=== PATIENT | male | born 1960 | race African-American/Black ===

== ENCOUNTER 2016-06-25 11:20 | Inpatient (IN) | payer OTHER ==
[2016-06-25] MEDS ORDERED: methylPREDNISolone NA SUCC 125 MG/2 ML VIAL IVPB ONE (12:14)
[2016-06-25] MEDS ORDERED: ALBUTEROL SO4 2.5/IPRATROPIUM 0.5 INH SOL 3 ML VIAL.NEB. NEB ONE ×2 (12:14→12:24)
[2016-06-25] MEDS ORDERED: OXYCODONE/APAP 5/325MG COMBO TABLET PO ONE (12:14)
--- NOTE | 2016-06-25 12:21 | PDOC ---
History of Present Illness - General History Source: Patient Exam Limitations: No Limitations - History of Present Illness Initial Comments: 06/25/16 13:54 The patient is a 55 year old male with a significant past medical history of hypertension, hyperlipidemia, pulmonary hypertension, chronic hypoxic hypercapnic respiratory failure on 3-4L of home O2, CHF, COPD, and DVT (on eliquis), who presents to the ER with shortness of breath, chest congestion and coughing for 2-3 days and s/p fall 2 days ago. Patient notes that over the past couple of days his coughing has worsened and he is experiencing dyspnea on exertion. He notes that he had to increase his O2 to 8-9L at home and has increased nebulizer use from 2 times a day to 4 times. Patient notes that he is on 10 mg of prednisone 2x daily. Patient notes that he rolled off the bed 2 days ago and landed on his left side on couple of toys. Patient reports pain to the left side chest of his ribs and pain upon inhalation and exhalation. He states that he saw Dr. Johnson 2 weeks ago. He denies fever, chills, nausea, vomiting, diarrhea, constipation or abdominal pain. PCP - Does not have one at the moment but notes that Dr. Johnson will be his PMD until he finds one. <Dee Whitney - Last Filed: 06/25/16 16:42> <Gilberto Perry - Last Filed: 06/25/16 17:28> - General Chief Complaint: Shortness of Breath Stated Complaint: SOB Time Seen by Provider: 06/25/16 11:51 Past History <Dee Whitney - Last Filed: 06/25/16 16:42> - Past Medical History Anemia: No Asthma: No Cancer: No Cardiac Disorders: Yes (CHF) CVA: No COPD: Yes (emphysema) CHF: Yes Dementia: No Diabetes: No (DENIES) GI Disorders: No Disorders: No HTN: Yes Hypercholesterolemia: Yes Liver Disease: No Seizures: No Thyroid Disease: No - Surgical History Abdominal Surgery: Yes (POLYPS FROM STOMACH LINING.) Appendectomy: No Cardiac Surgery: No Cholecystectomy: No Lung Surgery: No Neurologic Surgery: No Orthopedic Surgery: Yes (knee arthroscopy) - Immunization History Immunization Up to Date: Yes - Psycho/Social/Smoking Cessation Hx Anxiety: No Suicidal Ideation: No Smoking Status: Yes Smoking History: Former smoker Have you smoked in the past 12 months: No Number of Cigarettes Smoked Daily: 10 If you are a former smoker, when did you quit?: 2004 Information on smoking cessation initiated: No 'Breaking Loose' booklet given: 11/26/15 Hx Alcohol Use: No Drug/Substance Use Hx: No Substance Use Type: None Hx Substance Use Treatment: Yes ([facility]) <Gilberto Perry - Last Filed: 06/25/16 17:28> - Past Medical History Allergies/Adverse Reactions: Allergies Allergy/AdvReac Type Severity Reaction Status Date / Time No Known Allergies Allergy Verified 06/25/16 11:26 Home Medications: Ambulatory Orders Apixaban [Eliquis] 5 mg PO DAILY 06/25/16 Atorvastatin Ca [Lipitor] 20 mg PO HS 06/25/16 Carvedilol 6.25 mg PO DAILY 06/25/16 Escitalopram Oxalate [Lexapro -] 10 mg PO DAILY 06/25/16 Fluticasone Furoate [Arnuity Ellipta] 200 mcg IH DAILY 06/25/16 Furosemide [Lasix] 20 mg PO DAILY 06/25/16 Lisinopril [Prinivil] 20 mg PO DAILY 06/25/16 Montelukast Na [Singulair -] 10 mg PO HS 06/25/16 Prednisone 10 mg PO DAILY 06/25/16 Umeclidinium [place] [Incruse Ellipta] 62.5 mcg IH DAILY 06/25/16 Respiratory Specific PMHX - Complaint Specific PMHX Angina: No Bronchitis: Yes Pneumonia: No <Gilberto Perry - Last Filed: 06/25/16 17:28> Review of Systems - Review of Systems Able to Perform ROS?: Yes Comments:: 06/25/16 13:54 CONSTITUTIONAL: No reported: Fever, Chills, Diaphoresis, Generalized Weakness, Malaise, Loss of Appetite HEENT: No reported: Rhinorrhea, Nasal Congestion, Throat Pain, Throat Swelling, Difficulty Swallowing, Mouth Swelling, Ear Pain, Eye Pain, Visual Changes CARDIOVASCULAR: reported: Chest Pain, rib pain No reported: Syncope, Palpitations, Irregular Heart Rate, Lightheadedness, Peripheral Edema RESPIRATORY: Reported: cough, SOB, SOB with exertion No reported: Orthopnea, Wheezing, Stridor, Hemoptysis GASTROINTESTINAL: No reported: Abdominal pain, Abdominal Distension, Nausea, Vomiting, Diarrhea, Constipation, Melena, Hematochezia GENITOURINARY: No reported: Dysuria, Frequency, Urgency, Hesitancy, Flank Pain, Genital Pain MUSCULOSKELETAL: Present: left sided rib/flank pain No reported: Myalgia, Arthralgia, Joint Swelling, Back pain, Neck Pain SKIN: No reported: Rash, Itching, Pallor HEMATOLOGIC/IMMUNOLOGIC: No reported: Easy Bleeding, Easy Bruising, Lymphadenopathy, Frequent infections ENDOCRINE: No reported: Unexplained Weight Gain, Unexplained Weight Loss, Heat Intolerance , Cold Intolerance NEUROLOGIC: No reported: Headache, Focal Weakness, Paresthesias, Vertigo, Lightheadedness, Unsteady Gait, Seizure, Mental Status Changes, Incontinence PSYCHIATRIC: No reported: Anxiety, Depression <Dee Whitney - Last Filed: 06/25/16 16:42> *Physical Exam - Vital Signs Last Vital Signs Temp Pulse Resp BP Pulse Ox 98 F 78 19 120/52 93 L 06/25/16 11:24 06/25/16 11:24 06/25/16 11:24 06/25/16 11:24 06/25/16 11:24 - Physical Exam Comments: 06/25/16 13:55 GENERAL: The patient is awake, alert, and fully oriented, Nontoxic - in no acute distress. HEAD: Normocephalic, atraumatic. EYES: extraocular movements intact, sclera anicteric, conjunctiva clear. ENT: Normal voice, Moist mucous membranes. NECK: Normal range of motion, supple LUNGS:+Crackles at left base, +Diffuse wheezing Breath sounds equal, clear to auscultation bilaterally. No no rhonchi, no rales. HEART: Regular rate and rhythm, without murmur, rub or gallop. ABDOMEN: +Obese, +reducible non tender umbilical hernia. Soft, nontender, normoactive bowel sounds. No guarding, no rebound. No CVA tenderness. MUSCULOSKELETAL: +diffuse tenderness over the left rib/flank area EXTREMITIES: Normal range of motion, no edema. No clubbing or cyanosis. No cords , erythema, or tenderness. NEUROLOGICAL: No facial asymmetry, Normal speech, PSYCH: Normal mood, normal affect. SKIN: Warm, Dry, normal turgor <Dee Whitney - Last Filed: 06/25/16 16:42> - Vital Signs Last Vital Signs Temp Pulse Resp BP Pulse Ox 98 F 78 19 120/52 93 L 06/25/16 11:24 06/25/16 11:24 06/25/16 11:24 06/25/16 11:24 06/25/16 11:24 <Orlando,Gilberto - Last Filed: 06/25/16 17:28> Heart Score/ECG Review - ECG Impressions Comment:: 06/25/16 17:28 Twelve-lead EKG was performed and reviewed by me. There is normal sinus rhythm with a normal rate. Rate of 74 qtc interval of 490 <Orlando,Gilberto - Last Filed: 06/25/16 17:28> ED Treatment Course - LABORATORY CBC & Chemistry Diagram: 06/25/16 12:28 06/25/16 12:28 - ADDITIONAL ORDERS Additional order review: Laboratory Results 06/25/16 06/25/16 12:28 12:25 VBG pH 7.37 POC VBG pCO2 66.9 H* D POC VBG pO2 50.2 H Mixed VBG HCO3 37.5 H Sodium 141 Potassium 4.3 Chloride 95 L Carbon Dioxide 40 H D Anion Gap 6 L BUN 21 H Creatinine 1.3 Creat Clearance w eGFR 57.31 Random Glucose 109 H D Calcium 9.0 Total Bilirubin 0.2 AST 20 ALT 26 Alkaline Phosphatase 91 D Creatine Kinase 91 Troponin I < 0.02 Total Protein 6.8 Albumin 3.5 D 06/25/16 12:28 RBC 4.59 D MCV 89.5 MCHC 32.0 RDW 15.0 MPV 7.0 L Neutrophils % Y Lymphocytes % Y - RADIOLOGY Radiology Studies Ordered: 06/25/16 16:43 EXAM#: TYPE/EXAM: RAD/CHEST PA LAT Prior study is dated March 24, 2016. There is interval improvement in previously seen right upper lobe infiltrate. There is some pleural thickening over the apices, right greater than left, and there is some mild scarring in the upper lobes right greater than left. There is mild increased density at the left base raising possibility of early infiltrate. There is some deformity of left lower ribs with some adjacent periosteal thickening consistent with rib fractures, which are present on prior CT scan dated March 14, 2016. Impression: Mild increased density at the left base raising possibility of early infiltrate. Additional findings as above. Reported By: Abby Acuna MD 06/25/16 06/25/16 16:45 EXAM#: TYPE/EXAM: RAD/RIBS-LEFT SIDE Rule out fracture. Left RIBS, 3 views. Compared to prior chest x-ray done on the same date. There is a healing fracture in the anterolateral arch of the left eighth, ninth and 10th rib. Minimal left pleural effusion/pleural thickening is present. No gross pneumothorax is identified. Impression: Healing slightly displaced left rib fractures, as described above. Reported By: Billy Cox MD 06/25/16 - Medications Given in the ED: ED Medications Discontinued Medications Generic Name Dose Route Start Last Admin Trade Name Freq PRN Reason Stop Dose Admin Albuterol/Ipratropium 1 amp 06/25/16 12:14 06/25/16 12:30 Duoneb - NEB 06/25/16 12:15 1 amp ONCE ONE Administration Methylprednisolone Sodium Succinate 125 mg 06/25/16 12:14 06/25/16 12:30 Solu-Medrol - IVPB 06/25/16 12:15 125 mg ONCE ONE Administration Oxycodone/Acetaminophen 2 combo 06/25/16 12:14 06/25/16 12:30 Percocet 5/325 - PO 06/25/16 12:15 2 combo ONCE ONE Administration <Dee Whitney - Last Filed: 06/25/16 16:42> - LABORATORY CBC & Chemistry Diagram: 06/25/16 12:28 06/25/16 12:28 - RADIOLOGY Radiology Studies Ordered: Category Date Time Status CHEST PA & LAT [RAD] Stat Radiology 06/25/16 12:13 Ordered RIBS-LEFT SIDE [RAD] Stat Radiology 06/25/16 12:13 Ordered <Gilberto Perry - Last Filed: 06/25/16 17:28> Medical Decision Making - Medical Decision Making 06/25/16 15:53 A call was placed to Dr. Saunders at her office. Awaiting a call back. 06/25/16 16:10 Case was discussed with Dr. Saunders. <Dee Whitney - Last Filed: 06/25/16 16:42> - Medical Decision Making 06/25/16 12:19 55y M hx of cad, copd, pulm htn, and other pmhx presents with sob, congestion x a few days, pt also notes he had a mechanical fall 2 days ago from his bed, landing on some toys, and has been having increased sob since then and has had to bump up his oxygen. on exam pt with mild rales at the Left base, and diffuse tendernes on left flank differential includes copd exacerbation, posible pna vs atelectasis, will r/o rib fracture will give nebs, steroids xrays of chest/l rib series labs, vbg, will reassess 06/25/16 16:24 cxr c/w pna labs reviewed will admit for management of pna cap coverage case d/w dr. saunders agered with admission for further mangaement of pna and copd stable for med surg Case discussed in detail with admitting physician including history, physical exam and ancillary studies. Admitting physician has assumed care for the patient, will follow all pending diagnostics and will complete the evaluation and treatment. <Gilberto Perry - Last Filed: 06/25/16 17:28> *DC/Admit/Observation/Transfer - Attestations Scribe Attestion: 06/25/16 13:55 Documentation prepared by JENNIFER Hernandez, acting as medical information specialist for Gilberto Perry MD, MD/DO. <Dee Whitney - Last Filed: 06/25/16 16:42> - Discharge Dispostion Admit: Yes <Gilberto Perry - Last Filed: 06/25/16 17:28> Diagnosis at time of Disposition: COPD exacerbation Pneumonia Qualifiers: Pneumonia type: due to unspecified organism Laterality: left Lung location: lower lobe of lung Qualified Code(s): J18.1 - Lobar pneumonia, unspecified organism - Discharge Dispostion Condition at time of disposition: Stable - Referrals
[2016-06-25] MEDS ORDERED: methylPREDNISolone NA SUCC 125 MG/2 ML VIAL ONE (12:24)
[2016-06-25] MEDS ORDERED: OXYCODONE/APAP 5/325MG COMBO TABLET ONE (12:24)
[2016-06-25 12:30] LABS: VENOUS BLOOD GAS HCO3 37.5 meq/L (19-25); VENOUS PH 7.37 (7.32-7.42)
[2016-06-25 12:39] LABS: MCH 28.6 pg (25.7-33.7); MEAN CELL VOLUME 89.5 fl (80-96); PLATELET COUNT 322 K/MM3 (134-434); WHITE BLOOD COUNT 14.3 K/mm3 (4.0-10.0)
[2016-06-25 13:15] LABS: ALBUMIN 3.5 g/dl (3.4-5.0); ANION GAP 6 (8-16); CO2 40 mmol/L (21-32); CREATININE 1.3 mg/dL (0.7-1.3); GLUCOSE,RANDOM 109 mg/dL (74-106); SGOT/AST 20 U/L (15-37); SGPT/ALT 26 U/L (12-78)
[2016-06-25 13:18] LABS: ALK PHOS 91 U/L (45-117); BILIRUBIN,TOTAL 0.2 mg/dL (0.2-1.0); TOT PROT 6.8 g/dl (6.4-8.2); TROPONIN I < 0.02 ng/ml (0.00-0.05)
[2016-06-25 14:42] LABS: PLATELET ESTIMATE ADEQUATE (NORMAL)
--- NOTE | 2016-06-25 15:33 | EKG ---
Test Reason : Blood Pressure : / mmHG Vent. Rate : 074 BPM Atrial Rate : 074 BPM P-R Int : 120 ms QRS Dur : 090 ms QT Int : 442 ms P-R-T Axes : 063 -06 034 degrees QTc Int : 490 ms NORMAL SINUS RHYTHM PROLONGED QT ABNORMAL ECG WHEN COMPARED WITH ECG OF 19-MAR-2016 10:01, QUESTIONABLE CHANGE IN QRS AXIS T WAVE INVERSION LESS EVIDENT IN ANTEROLATERAL LEADS Confirmed by JERMAINE MACHADO, LMA ([id number]) on 06/25/2016 3:33:15 PM Referred By: Confirmed By:LAM DEAN MD
[2016-06-25] MEDS ORDERED: AZITHROMYCIN IVPB 500 MG in DEXTROSE 5%-WATER - 250 ML IVPB ONE (15:52)
[2016-06-25] MEDS ORDERED: CEFTRIAXONE 1 GM in DEXTROSE 5%-WATER - 50 ML IVPB ONE (15:52)
[2016-06-25] MEDS ORDERED: CEFTRIAXONE 50 ML ONE (16:18)
[2016-06-25] MEDS ORDERED: AZITHROMYCIN IVPB 250 ML IVPB ONE (16:18)
[2016-06-25 21:07] VITALS: BMI 29.8
--- NOTE | 2016-06-25 21:46 | HOSP ---
Subjective - Review of Symptoms Events since last encounter: Was paged by the nurse at 9:15pm and informed that she saw the patient sniffing white powder. Went to examine the patient. Patient denied that he sniffed any powder and was very angry. He said he will rather leave against medical advise. Later he refused to sign the papers and said " I don't want to sign the papers because I am not guilty and if I sign it means I am guilty". Patient agreed to stay and follow the rules of the hospital. Patient said he wants to be transferred in the other floor and to be taken care by a different RN. Informed Dr. Izaguirre and as per her recommendations, will order urine toxicology. Vitals:- BP- 111/76 mmHg; P-85 bpm, RR-24; Temp-97 F Physical exam- patient refused. A/P Patient is a 55 year old male with a significant past medical history of hypertension, hyperlipidemia, pulmonary hypertension, chronic hypoxic hypercapnic respiratory failure on 3-4L of home O2, CHF, COPD, and DVT (on eliquis) admitted for COPD exacerbation. U. tox ordered. No visitors allowed Case discussed with Dr. Ash and Dr. Izaguirre. Physical Examination Vital Signs: Vital Signs Temperature 97.6 F 06/25/16 20:30 Pulse Rate 85 06/25/16 20:30 Respiratory Rate 24 06/25/16 20:30 Blood Pressure 111/76 06/25/16 20:30 O2 Sat by Pulse Oximetry (%) 90 L 06/25/16 20:30 Visit type - Emergency Visit Emergency Visit: Yes ED Registration Date: 06/25/16 Care time: The patient presented to the Emergency Department on the above date and was hospitalized for further evaluation of their emergent condition. - New Patient This patient is new to me today: Yes Date on this admission: 06/25/16 - Critical Care Critical Care patient: No
[2016-06-26] MEDS: ALBUTEROL SO4 2.5/IPRATROPIUM 0.5 INH SOL 3 ML VIAL.NEB. NEB PRN ×2 (01:27→06:25)
[2016-06-26] MEDS: methylPREDNISolone NA SUCC 40 MG/1 ML VIAL IVPB SCH ×3 (02:15→17:18)
[2016-06-26] MEDS: LISINOPRIL 20 MG TABLET (FP) PO SCH (06:25)
[2016-06-26] MEDS: ESCITALOPRAM OXALATE 10 MG TABLET (FP) PO SCH (06:25)
[2016-06-26] MEDS: CARVEDILOL 6.25 MG TABLET (FP) PO SCH (06:25)
[2016-06-26] MEDS: FUROSEMIDE 20 MG TABLET (FP) PO SCH (06:25)
[2016-06-26 06:54] LABS: URINE MARIJUANA THC NEGATIVE ng/ml (CUTOFF=50)
[2016-06-26] MEDS: APIXABAN 5 MG TABLET PO SCH (07:14)
[2016-06-26 08:01] LABS: BASOPHIL 0.4 % (0-2.0); EOSINOPHIL 0.1 % (0-4.5); MCH 28.7 pg (25.7-33.7); MEAN CELL VOLUME 89.7 fl (80-96); MEAN PLT VOLUME 7.2 fl (7.5-11.1); PLATELET COUNT 321 K/MM3 (134-434); RDW 14.8 % (11.9-15.9); WHITE BLOOD COUNT 13.4 K/mm3 (4.0-10.0)
[2016-06-26 08:11] LABS: ALBUMIN 3.7 g/dl (3.4-5.0); ANION GAP 6 (8-16); CALCIUM 9.3 mg/dL (8.5-10.1); CO2 36 mmol/L (21-32); GLUCOSE,RANDOM 101 mg/dL (74-106); SGOT/AST 14 U/L (15-37); SGPT/ALT 27 U/L (12-78)
[2016-06-26 08:15] LABS: ALK PHOS 96 U/L (45-117); BILIRUBIN,TOTAL 0.3 mg/dL (0.2-1.0); TOT PROT 7.1 g/dl (6.4-8.2)
[2016-06-26] MEDS ORDERED: METHADONE HCL 40 MG DISPERSABLE TABLET PO ONE (08:30)
[2016-06-26] MEDS ORDERED: APIXABAN 5 MG TABLET PO SCH (10:00)
[2016-06-26] MEDS ORDERED: FUROSEMIDE 20 MG TABLET (FP) PO SCH (10:00)
[2016-06-26] MEDS ORDERED: ESCITALOPRAM OXALATE 10 MG TABLET (FP) PO SCH (10:00)
[2016-06-26] MEDS ORDERED: FLUTICASONE FUROATE 200 MCG IH SCH (10:00)
[2016-06-26] MEDS ORDERED: LISINOPRIL 20 MG TABLET (FP) PO SCH (10:00)
[2016-06-26] MEDS ORDERED: CARVEDILOL 6.25 MG TABLET (FP) PO SCH (10:00)
--- NOTE | 2016-06-26 12:24 | HP ---
Admitting History and Physical - Past Medical History Cardiovascular: Yes: CHF, HTN, Hyperlipdemia, Other (Nonischemic dilated cardiomyopathy) Pulmonary: Yes: COPD, O2 Dependent Infectious Disease: Yes: Herpes Zoster, Other (Positive PPD while in the [employer] in 1979-apparently had INH (?) for several months) - Past Surgical History Past Surgical History: Yes: Joint Replacement (Left knee ORIF- 1989) - Smoking History Smoking history: Former smoker Have you smoked in the past 12 months: No Aproximately how many cigarettes per day: 10 If you are a former smoker, when did you quit?: 2004 - Alcohol/Substance Use Hx Alcohol Use: No History of Substance Use: reports: None (Is going through methadone detox) - Social History ADL: Support Services (O2 Nasal Cannula) History of Recent Travel: No Home Medications - Allergies Allergies/Adverse Reactions: Allergies Allergy/AdvReac Type Severity Reaction Status Date / Time No Known Allergies Allergy Verified 06/25/16 11:26 - Home Medications Home Medications: Ambulatory Orders Apixaban [Eliquis] 5 mg PO DAILY 06/25/16 Atorvastatin Ca [Lipitor] 20 mg PO HS 06/25/16 Carvedilol 6.25 mg PO DAILY 06/25/16 Escitalopram Oxalate [Lexapro -] 10 mg PO DAILY 06/25/16 Fluticasone Furoate [Arnuity Ellipta] 200 mcg IH DAILY 06/25/16 Furosemide [Lasix] 20 mg PO DAILY 06/25/16 Lisinopril [Prinivil] 20 mg PO DAILY 06/25/16 Montelukast Na [Singulair -] 10 mg PO HS 06/25/16 Prednisone 10 mg PO DAILY 06/25/16 Umeclidinium [place] [Incruse Ellipta] 62.5 mcg IH DAILY 06/25/16 Acetaminophen [Tylenol -] 500 mg PO Q6H PRN #100 tablet 06/27/16 Escitalopram Oxalate [Lexapro -] 10 mg PO DAILY tablet 06/27/16 Escitalopram Oxalate [Lexapro -] 10 mg PO DAILY tablet 06/27/16 Methadone [Dolophine -] 40 mg PO DAILY@0600 tablet MDD 1 06/27/16 Methylprednisolone [Medrol Dose Angel] 4 mg PO ASDIR #21 tablet 06/27/16 Physical Examination Vital Signs: Vital Signs Temperature 97.6 F 06/25/16 20:30 Pulse Rate 84 06/26/16 11:37 Respiratory Rate 24 06/25/16 21:00 Blood Pressure 111/76 06/25/16 20:30 O2 Sat by Pulse Oximetry (%) 93 L 06/26/16 11:37 Labs: CBC, BMP 06/26/16 06:00 06/26/16 06:00 Problem List - Problems (1) Acute exacerbation of chronic obstructive pulmonary disease (COPD) Code(s): J44.1 - CHRONIC OBSTRUCTIVE PULMONARY DISEASE W (ACUTE) EXACERBATION (2) Acute kidney injury Code(s): N17.9 - ACUTE KIDNEY FAILURE, UNSPECIFIED (3) Anemia Code(s): D64.9 - ANEMIA, UNSPECIFIED (4) HLD (hyperlipidemia) Code(s): E78.5 - HYPERLIPIDEMIA, UNSPECIFIED Qualifiers: Hyperlipidemia type: pure hypercholesterolemia (5) Hypertension Code(s): I10 - ESSENTIAL (PRIMARY) HYPERTENSION Qualifiers: Hypertension type: essential hypertension Qualified Code(s): I10 - Essential (primary) hypertension (6) Long-term current use of methadone for opiate dependence Code(s): F11.20 - OPIOID DEPENDENCE, UNCOMPLICATED
[2016-06-26] MEDS: traMADol HCL 50 MG TABLET PO PRN (17:18)
--- NOTE | 2016-06-26 17:41 | CON.PULM ---
Consult Consult Specialty:: PULMONARY Referred by:: SERGIO Reason for Consultation:: SOB - History of Present Illness Chief Complaint: SOB/CHEST CONGESTION/COUGH History of Present Illness: 55 b male with h/o former etohism/former smoker present h/o opiate abuse on methadone. presents with cough and chest congestion also complaining of fall with left rib trauma. - History Source History Provided By: Patient, Medical Record Limitations to Obtaining History: Clinical Condition - Past Medical History [employer]: No: Alzheimer's Cardio/Vascular: Yes: CHF, HTN, Hyperlipdemia, Other (nonischemic cardiomyopathy ) Pulmonary: Yes: COPD, O2 Dependent, Pulmonary Embolus Gastrointestinal: No: Cancer Renal/: Yes: Renal Failure Infectious Disease: Yes: Herpes Zoster, Other (Positive PPD while in the [employer] in 1979-apparently had INH (?) for several months) Psych: Yes: Addictions, Depression - Past Surgical History Past Surgical History: Yes: Joint Replacement (Left knee ORIF- 1989) - Alcohol/Substance Use Hx Alcohol Use: No History of Substance Use: reports: Heroin, Prescription - Smoking History Smoking history: Former smoker Have you smoked in the past 12 months: No Aproximately how many cigarettes per day: 10 If you are a former smoker, when did you quit?: 2004 - Social History Usual Living Arrangement: With Spouse ADL: Support Services (O2 Nasal Cannula) Place of : [facility] History of Recent Travel: No Home Medications - Allergies Allergies/Adverse Reactions: Allergies Allergy/AdvReac Type Severity Reaction Status Date / Time No Known Allergies Allergy Verified 06/25/16 11:26 - Home Medications Home Medications: Ambulatory Orders Apixaban [Eliquis] 5 mg PO DAILY 06/25/16 Atorvastatin Ca [Lipitor] 20 mg PO HS 06/25/16 Carvedilol 6.25 mg PO DAILY 06/25/16 Escitalopram Oxalate [Lexapro -] 10 mg PO DAILY 06/25/16 Fluticasone Furoate [Arnuity Ellipta] 200 mcg IH DAILY 06/25/16 Furosemide [Lasix] 20 mg PO DAILY 06/25/16 Lisinopril [Prinivil] 20 mg PO DAILY 06/25/16 Montelukast Na [Singulair -] 10 mg PO HS 06/25/16 Prednisone 10 mg PO DAILY 06/25/16 Umeclidinium [place] [Incruse Ellipta] 62.5 mcg IH DAILY 06/25/16 Family Disease History - Family Disease History Family History: Unremarkable Review of Systems Unable to obtain ROS, reason: poor informant Physical Exam Vital Sings: Vital Signs Temperature 98.3 F 06/26/16 15:00 Pulse Rate 79 06/26/16 15:00 Respiratory Rate 22 06/26/16 15:00 Blood Pressure 137/68 06/26/16 15:00 O2 Sat by Pulse Oximetry (%) 93 L 06/26/16 11:37 Constitutional: Yes: Anxious Eyes: Yes: EOM Intact HENT: Yes: Normocephalic Neck: Yes: Trachea Midline Cardiovascular: Yes: S1, S2 Respiratory: Yes: CTA Bilaterally Gastrointestinal: Yes: Normal Bowel Sounds Edema: No Neurological: Yes: Tremors (mild) Labs: CBC, BMP 06/26/16 06:00 06/26/16 06:00 rest reviewed Imaging - Results Chest X-ray: Report Reviewed, Image Reviewed Problem List - Problems (1) COPD exacerbation Code(s): J44.1 - CHRONIC OBSTRUCTIVE PULMONARY DISEASE W (ACUTE) EXACERBATION (2) Acute and chronic respiratory failure ([id number]) Code(s): J96.20 - ACUTE AND CHR RESP FAILURE, UNSP W HYPOXIA OR HYPERCAPNIA Qualifiers: Respiratory failure complication: unspecified whether with hypoxia or hypercapnia Qualified Code(s): J96.20 - Acute and chronic respiratory failure, unspecified whether with hypoxia or hypercapnia (3) Acute exacerbation of chronic obstructive pulmonary disease (COPD) Code(s): J44.1 - CHRONIC OBSTRUCTIVE PULMONARY DISEASE W (ACUTE) EXACERBATION (4) Acute kidney injury Code(s): N17.9 - ACUTE KIDNEY FAILURE, UNSPECIFIED (5) Anemia Code(s): D64.9 - ANEMIA, UNSPECIFIED (6) CHF exacerbation Code(s): I50.9 - HEART FAILURE, UNSPECIFIED Qualifiers: Assessment/Plan PANCULTURE O2 PRN KEEP SAT GREATER THAN 90% BRONCHODILATORS ANTICOGULATION REDUCE STEROID DOSE ANTIBIOTICS ON HOLD WILL FOLLOW Parul SYKES MD
[2016-06-26] MEDS ORDERED: MONTELUKAST NA 10 MG TABLET PO SCH (22:00)
[2016-06-26] MEDS ORDERED: ATORVASTATIN CA 20 MG TABLET (FP) PO SCH (22:00)
[2016-06-26] MEDS ORDERED: traMADol HCL 50 MG TABLET PO ONE (23:45)
[2016-06-27] MEDS: methylPREDNISolone NA SUCC 40 MG/1 ML VIAL IVPB SCH ×2 (01:36→09:42)
[2016-06-27] MEDS: ALBUTEROL SO4 2.5/IPRATROPIUM 0.5 INH SOL 3 ML VIAL.NEB. NEB PRN ×2 (05:13→11:45)
[2016-06-27] MEDS ORDERED: METHADONE HCL 40 MG DISPERSABLE TABLET PO SCH (06:00)
[2016-06-27] MEDS: traMADol HCL 50 MG TABLET PO PRN (08:20)
[2016-06-27] MEDS: FUROSEMIDE 20 MG TABLET (FP) PO SCH (09:42)
[2016-06-27] MEDS: APIXABAN 5 MG TABLET PO SCH (09:42)
[2016-06-27] MEDS: CARVEDILOL 6.25 MG TABLET (FP) PO SCH (09:42)
[2016-06-27] MEDS: ESCITALOPRAM OXALATE 10 MG TABLET (FP) PO SCH (09:42)
[2016-06-27] MEDS: LISINOPRIL 20 MG TABLET (FP) PO SCH (09:42)
[2016-06-27 11:28] VITALS: BP 128/89; PULSE 92; TEMP 97.9
--- NOTE | 2016-06-27 13:26 | PN ---
Progress Note (short form) - Note Progress Note: Feels his breathing is at his baseline. Some left rib cage discomfort. X ray : Healing rib fractures Intake & Output 06/24/16 06/25/16 06/26/16 06/27/16 23:59 23:59 23:59 23:59 Intake Total 600 950 Balance 600 950 Weight 208 lb 197 lb 6.4 oz Last Vital Signs Temp Pulse Resp BP Pulse Ox 97.9 F 92 H 22 128/89 93 L 06/27/16 10:00 06/27/16 10:00 06/27/16 10:00 06/27/16 10:00 06/26/16 21:00 Active Medications Albuterol/Ipratropium (Duoneb -) 1 amp NEB Q6H PRN PRN Reason: SHORTNESS OF BREATH Last Admin: 06/27/16 11:45 Dose: 1 amp Apixaban (Eliquis -) 5 mg PO DAILY [facility] Last Admin: 06/27/16 09:42 Dose: 5 mg Atorvastatin Calcium (Lipitor -) 20 mg PO [facility] Last Admin: 06/26/16 21:28 Dose: 20 mg Carvedilol (Coreg -) 6.25 mg PO DAILY [facility] Last Admin: 06/27/16 09:42 Dose: 6.25 mg Escitalopram Oxalate (Lexapro -) 10 mg PO DAILY [facility] Last Admin: 06/27/16 09:42 Dose: 10 mg Furosemide (Lasix -) 20 mg PO DAILY [facility] Last Admin: 06/27/16 09:42 Dose: 20 mg Lisinopril (Prinivil) 20 mg PO DAILY [facility] Last Admin: 06/27/16 09:42 Dose: 20 mg Methadone HCl (Dolophine -) 40 mg PO DAILY@0600 [facility] Last Admin: 06/27/16 06:03 Dose: 40 mg Methylprednisolone Sodium Succinate (Solu-Medrol -) 40 mg IVPB Q8H-IV [facility] Last Admin: 06/27/16 09:42 Dose: 40 mg Montelukast Sodium (Singulair -) 10 mg PO HS [facility] Last Admin: 06/26/16 21:28 Dose: 10 mg Non-Formulary Medication (Fluticasone Furoate [Arnuity Ellipta]) 200 mcg IH DAILY [facility] Tramadol HCl (Ultram -) 50 mg PO Q8H PRN PRN Reason: PAIN Last Admin: 06/27/16 08:20 Dose: 50 mg Constitutional: Yes: NAD Eyes: Yes: EOM Intact HENT: Yes: Normocephalic Neck: Yes: Trachea Midline Cardiovascular: Yes: S1, S2 Respiratory: Yes: Scattered rhonchi Gastrointestinal: Yes: Normal Bowel Sounds Edema: No Neurological: Yes: Non-focal Labs: Problem List - Problems (1) COPD exacerbation Code(s): J44.1 - CHRONIC OBSTRUCTIVE PULMONARY DISEASE W (ACUTE) EXACERBATION (2) Acute and chronic respiratory failure ([id number]) Code(s): J96.20 - ACUTE AND CHR RESP FAILURE, UNSP W HYPOXIA OR HYPERCAPNIA Qualifiers: Respiratory failure complication: unspecified whether with hypoxia or hypercapnia Qualified Code(s): J96.20 - Acute and chronic respiratory failure, unspecified whether with hypoxia or hypercapnia (3) Acute exacerbation of chronic obstructive pulmonary disease (COPD) Code(s): J44.1 - CHRONIC OBSTRUCTIVE PULMONARY DISEASE W (ACUTE) EXACERBATION (4) Acute kidney injury Code(s): N17.9 - ACUTE KIDNEY FAILURE, UNSPECIFIED (5) Anemia Code(s): D64.9 - ANEMIA, UNSPECIFIED (6) CHF exacerbation Code(s): I50.9 - HEART FAILURE, UNSPECIFIED Qualifiers: Assessment/Plan Prednisone taper Pain control Heat compresses BD TX No smoking Would monitor off ABX There is no Pulmonary contraindication for D/C home today Dr Dumont
== END 2016-06-27 15:00 | disposition home or self-care (01) | DRG 190 ==
LOC: JER 11:20 → JERBED 16:23 → J8W 20:09 → J5S 23:05
PROVIDERS: ADMIT Internal Medicine; ATTEND Internal Medicine
DX: J44.1 Chronic obstructive pulmonary disease with (acute) exacerbation (principal); J96.20 Acute and chronic respiratory failure, unspecified whether with hypoxia or hypercapnia; N17.9 Acute kidney failure, unspecified; I42.8 Other cardiomyopathies; S22.42XA Multiple fractures of ribs, left side, initial encounter for closed fracture; E78.5 Hyperlipidemia, unspecified; I27.2 Other secondary pulmonary hypertension; Z99.81 Dependence on supplemental oxygen; Z86.718 Personal history of other venous thrombosis and embolism; Z79.01 Long term (current) use of anticoagulants; I11.0 Hypertensive heart disease with heart failure; I50.9 Heart failure, unspecified; Z87.891 Personal history of nicotine dependence; F10.10 Alcohol abuse, uncomplicated; D64.9 Anemia, unspecified; F11.10 Opioid abuse, uncomplicated; W06.XXXA Fall from bed, initial encounter; Y93.89 Activity, other specified; Y92.092 Bedroom in other non-institutional residence as the place of occurrence of the external cause; Y99.8 Other external cause status
CPT/HCPCS: 36415; 71020-TC; 71101-TC; 80053; 80307; 82550; 82803; 84484; 85025; 87040; 93005; 93010; 94640; 99285-25